=== PATIENT | female | born 2000 | race Caucasian/White ===

== ENCOUNTER 2021-10-03 15:53 | Emergency (ER) | payer OTHER ==
[~2021-10-03] VITALS: Ht 172.7 cm; Wt 72.7 kg
[~2021-10-03 15:53] MED LIST: TUSS PO; ZITHROMAX 250M250 MG PO
[2021-10-03 16:05] VITALS: TEMP 98.4
[2021-10-03] MEDS ORDERED: BACTROBAN15 GM TOP (16:36)
[2021-10-03 16:48] VITALS: BP 107/62; PULSE 67
[2021-10-03] MEDS ORDERED: VALTREX1 GM PO (16:53)
== END 2021-10-03 16:55 | disposition home or self-care (01) ==
LOC: COL.ER 15:53
DX: L01.00 Impetigo, unspecified (principal)